=== PATIENT | male | born 1995 | race Caucasian/White ===

== ENCOUNTER 2018-11-15 11:41 | Emergency (ER) | payer BC ==
[~2018-11-15] VITALS: Ht 177.8 cm; Wt 99.1 kg
[2018-11-15 11:42] VITALS: BP 146/87
[2018-11-15] MEDS ORDERED: METAL LOCK LOOP XX ONE (12:15)
--- NOTE | 2018-11-15 12:28 | REP ---
Clinical: Trauma. Technique: AP, lateral, bilateral oblique views left fourth digit Findings: The osseous structures and joint spaces are intact and normal. There is no evidence for acute fracture or dislocation. Surrounding soft tissues are unremarkable. No subcutaneous emphysema or radiodense foreign body. Impression: No acute fracture or dislocation. Electronically Signed by John Castillo MD 11/15/2018 12:19 P
== END 2018-11-15 13:27 | disposition home or self-care (01) ==
LOC: M ED 11:41
DX: M20.012 Mallet finger of left finger(s) (principal); S66.305A Unspecified injury of extensor muscle, fascia and tendon of left ring finger at wrist and hand level, initial encounter; W21.02XA Struck by soccer ball, initial encounter; Y92.89 Other specified places as the place of occurrence of the external cause; Y99.0 Civilian activity done for income or pay